=== PATIENT | male | born 1980 | race Two or more races ===

== ENCOUNTER 2017-03-10 09:17 | Emergency (ER) | payer SELFPAY ==
[~2017-03-10] VITALS: Ht 180.3 cm; Wt 74.8 kg
[2017-03-10 09:25] VITALS: BP 144/87
--- NOTE | 2017-03-10 09:45 | NUR ---
PT IS NOT IN ED OR WAITING ROOM. UNABLE TO LOCATE PATIENT. WILL TRY AGAIN
--- NOTE | 2017-03-10 10:22 | NUR ---
Patient eloped from facility. ER MD notified.
== END 2017-03-10 10:24 | disposition home or self-care (01) ==
LOC: ER 09:19
DX: Z53.21 Procedure and treatment not carried out due to patient leaving prior to being seen by health care provider (principal)
CPT/HCPCS: A4606; Z7610

== ENCOUNTER 2017-03-10 11:28 | Emergency (ER) | payer SELFPAY ==
[~2017-03-10] VITALS: Ht 170.2 cm; Wt 70.3 kg
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
[2017-03-10] MEDS ORDERED: OLANZAPINE 5 MG TABLET ONE ×2 (11:36→13:41)
--- NOTE | 2017-03-10 11:37 | NUR ---
DR CHAWLA AT BEDSIDE FOR EVAL.
[2017-03-10] MEDS: LORAZEPAM INJ 2 MG/ML VIAL IV ONE ×2 (11:41→13:42)
[2017-03-10] MEDS: OLANZAPINE 5 MG TABLET PO ONE ×2 (11:42→13:44)
--- NOTE | 2017-03-10 11:43 | NUR ---
REFUSED PIV/BLOOD AND URINE TESTS, INCLUDING IV/IM AND ORAL MEDICATIONS, [employer] OFFICERS AT BEDSIDE. MARKOS ALEXANDER CALLED AND WANTS ON-CALL PAGED.
--- NOTE | 2017-03-10 13:20 | NUR ---
BRANDY RN AT BEDSIDE FOR PSYCH EVAL.
[2017-03-10] MEDS ORDERED: LORAZEPAM 1 MG TABLET ONE (13:41)
--- NOTE | 2017-03-10 13:45 | NUR ---
PT MEDICATED ORDERED. SEE EMAR.
--- NOTE | 2017-03-10 13:50 | NUR ---
KARLA PLACED PT ON 5150 HOLD FOR DTS.
[2017-03-10] MEDS ORDERED: LORAZEPAM 1 MG TABLET PO ONE (14:00)
--- NOTE | 2017-03-10 15:48 | NUR ---
PT IS MEDICALLY ANS PSYCH CLEARED. D/C HOME IN STABLE CONDITION.
[2017-03-10 15:50] VITALS: BP 134/80
== END 2017-03-10 15:51 | disposition home or self-care (01) ==
LOC: EDUNIT# 11:28 → ER 11:29
DX: F15.10 Other stimulant abuse, uncomplicated (principal); F22 Delusional disorders
CPT/HCPCS: A4606; Z7610